=== PATIENT | male | born 1950 | race Caucasian/White ===

== ENCOUNTER → 2016-12-11 | Outpatient (CLI) | payer BC ==
[~2016-12-11] MED LIST: AMLO1TAB12 PO; GLUC1TAB40 PO; LUTE20CA3 PO; MULT-806 PO; PROP80CA PO; SIMV40TA82 PO
--- NOTE | 2016-12-11 08:52 | DI ---
Indication: ITS.REASON: R74.8 PROCEDURE: US ABDOMEN COMPLETE: Encounter: Initial Comparison: None Technique: Grayscale and color Doppler sonographic imaging of the abdomen was performed. Findings: Hepatic parenchyma shows an anechoic 1.9 cm simple appearing cyst in the left lobe of liver with additional smaller cysts scattered throughout the liver. Parenchyma is quite echogenic and sonographically dense. The gallbladder is normal. There is no wall thickening, pericholecystic fluid, sonographic Frey's sign or cholelithiasis. Both the intra and extrahepatic biliary system are of normal caliber with the common duct measuring 2 mm in dimension. Visualized portions of the head and body of the pancreas are unremarkable. Both kidneys are present without collecting system dilatation. The right measures 12.5 cm in length and left measures 11.8 cm. Prominent simple appearing 4.1 cm cyst in the superior aspect of the right kidney. The spleen is unremarkable. The visualized portions of the aorta and IVC are unremarkable. No free fluid. Impression: Hepatic steatosis. .
== END ==
LOC: IMA 06:32
PROVIDERS: ATTEND Family Medicine
DX: R74.8 Abnormal levels of other serum enzymes (principal); K76.0 Fatty (change of) liver, not elsewhere classified